=== PATIENT | male | born 1950 | race Caucasian/White ===

== ENCOUNTER 2018-08-21 12:46 | Inpatient (IN) | payer MEDICARE ==
[~2018-08-21] VITALS: Ht 175.3 cm; Wt 49.9 kg
[2018-08-21] MEDS ORDERED: SODIUM CHLORIDE FLUSH 10ML SYR IVF ONE (13:30)
[2018-08-21] MEDS ORDERED: PLEASE ENTER ALLERGIES MC SCH (13:30)
[2018-08-21 13:37] LABS: BASOPHILS # (AUTO) 0.06 x10^3/uL (0-0.1); BASOPHILS % (AUTO) 1 % (0-1); EOSINOPHILS # (AUTO) 0.26 x10^3/uL (0-0.4); EOSINOPHILS % (AUTO) 2 % (1-7); LYMPHOCYTES # (AUTO) 1.73 x10^3/uL (1-3.4); LYMPHOCYTES % (AUTO) 16 % (22-44); MD NO; MEAN CORPUSCULAR HEMOGLOBIN 33.1 pg (27.5-34.5); MEAN CORPUSCULAR VOLUME 97.4 fL (81-97); MONOCYTES # (AUTO) 0.86 x10^3/uL (0.2-0.8); MONOCYTES % (AUTO) 8 % (2-9); NEUTROPHILS # (AUTO) 8.01 x10^3/uL (1.8-6.8); NEUTROPHILS % (AUTO) 73 % (42-75); PLATELET COUNT 341 x10^3/uL (130-400); RED BLOOD COUNT 4.35 x10^6/uL (4.38-5.82); RED CELL DISTRIBUTION WIDTH 15.3 % (9.4-14.8)
[2018-08-21 13:47] LABS: INTERNATIONAL NORMALIZED RATIO 0.97 (0.93-1.1); PROTHROMBIN TIME 10.1 Seconds (9.6-11.5)
[2018-08-21 13:49] LABS: ALANINE AMINOTRANSFERASE 18 U/L (12-78); ALBUMIN 3.3 g/dL (3.4-5.0); ANION GAP 10 mmol/L (5-15); CALCIUM 8.7 mg/dL (8.5-10.1); CHLORIDE 105 mmol/L (98-107); CREATININE 1.05 mg/dL (0.7-1.3)
[2018-08-21 13:54] LABS: ALKALINE PHOSPHATASE 128 U/L (45-117); BILIRUBIN,TOTAL 0.6 mg/dL (0.2-1.0); FREE T4 (FREE THYROXINE) 1.27 ng/dL (0.76-1.46); TOTAL PROTEIN 7.9 g/dL (6.4-8.2); TROPONIN I < 0.015 ng/mL (0.000-0.045)
[2018-08-21] MEDS ORDERED: ONDANSETRON ODT 4 MG PO ONE (15:30)
[2018-08-21 16:28] LABS: SALICYLATE LEVEL 1.7 mg/dL (2.8-20.0)
[2018-08-21 16:33] LABS: ACETAMINOPHEN < 2 mcg/mL (10-30)
[2018-08-21] MEDS ORDERED: ACETAMINOPHEN 325 MG TABLET PO PRN (19:00)
[2018-08-21] MEDS ORDERED: ONDANSETRON ODT 4 MG PO PRN (19:00)
[2018-08-21] MEDS ORDERED: DOCUSATE 100 MG CAPSULE PO PRN (19:00)
[2018-08-21] MEDS ORDERED: hydrALAzine 20 MG/ML, 1ML IVPush PRN (19:00)
[2018-08-21 19:50] VITALS: BP 97/64
[2018-08-21] MEDS: ENOXAPARIN 40 MG/0.4 ML SQ SCH (21:18)
[2018-08-22 02:26] LABS: MICROSCOPIC AUTO
[2018-08-22 02:29] LABS: CULTURE INDICATED? YES
[2018-08-22 03:33] VITALS: BP 90/50
[2018-08-22 07:01] VITALS: BP 95/64
[2018-08-22] MEDS: CEFTRIAXONE PMX 1GM/50ML 50 ML IV SCH (09:24)
[2018-08-22 12:45] VITALS: BP 122/72
[2018-08-22] MEDS ORDERED: POLYETHYLENE GLYCOL 17 GM PACKET PO PRN (13:30)
[2018-08-22 19:02] VITALS: BP 108/61
[2018-08-22] MEDS: ENOXAPARIN 40 MG/0.4 ML SQ SCH (20:18)
[2018-08-22] MEDS: DOCUSATE 100 MG CAPSULE PO SCH (20:18)
[2018-08-22 23:47] LABS: MICROSCOPIC AUTO
[2018-08-23] LABS: CULTURE INDICATED? YES
[2018-08-23 02:34] VITALS: BP 123/76
[2018-08-23 05:33] LABS: ANION GAP 6 mmol/L (5-15); CALCIUM 8.2 mg/dL (8.5-10.1); CHLORIDE 109 mmol/L (98-107)
[2018-08-23 05:40] LABS: BASOPHILS # (AUTO) 0.04 x10^3/uL (0-0.1); BASOPHILS % (AUTO) 1 % (0-1); EOSINOPHILS # (AUTO) 0.23 x10^3/uL (0-0.4); EOSINOPHILS % (AUTO) 3 % (1-7); LYMPHOCYTES # (AUTO) 1.94 x10^3/uL (1-3.4); LYMPHOCYTES % (AUTO) 21 % (22-44); MD NO; MEAN CORPUSCULAR HEMOGLOBIN 32.9 pg (27.5-34.5); MEAN CORPUSCULAR HGB CONC 33.4 g/dL (33.2-36.2); MEAN CORPUSCULAR VOLUME 98.5 fL (81-97); MEAN PLATELET VOLUME 7.4 fL (7.4-10.4); MONOCYTES # (AUTO) 1.18 x10^3/uL (0.2-0.8); MONOCYTES % (AUTO) 13 % (2-9); NEUTROPHILS # (AUTO) 5.76 x10^3/uL (1.8-6.8); NEUTROPHILS % (AUTO) 63 % (42-75); PLATELET COUNT 264 x10^3/uL (130-400); RED BLOOD COUNT 3.82 x10^6/uL (4.38-5.82); RED CELL DISTRIBUTION WIDTH 15.4 % (9.4-14.8)
[2018-08-23 05:59] LABS: FOLATE LEVEL 5.1 ng/mL (3.1-17.5)
[2018-08-23 07:17] VITALS: BP_SYST 103; BP_SYST 113; BP_DIAS 61; BP_DIAS 64
[2018-08-23] MEDS: DOCUSATE 100 MG CAPSULE PO SCH (10:11)
[2018-08-23] MEDS: CEFTRIAXONE PMX 1GM/50ML 50 ML IV SCH (10:11)
[2018-08-23] MEDS ORDERED: DOCUSATE 100 MG CAPSULE PO PRN (10:30)
[2018-08-23] MEDS: FINASTERIDE 5 MG TABLET PO SCH (13:33)
[2018-08-23] MEDS: TAMSULOSIN 0.4 MG CAP.ER.24H PO SCH (13:33)
[2018-08-23 14:42] VITALS: BP 107/65
[2018-08-23 18:49] VITALS: BP 100/62
[2018-08-23] MEDS: ENOXAPARIN 40 MG/0.4 ML SQ SCH (20:33)
[2018-08-24 02:29] VITALS: BP 107/70
[2018-08-24 05:29] LABS: CHLORIDE 107 mmol/L (98-107)
[2018-08-24 05:34] LABS: ANION GAP 10 mmol/L (5-15); CALCIUM 8.1 mg/dL (8.5-10.1); CREATININE 0.82 mg/dL (0.7-1.3)
[2018-08-24 08:25] VITALS: BP 96/62
[2018-08-24 08:44] VITALS: BP 101/61
[2018-08-24] MEDS: CEFTRIAXONE PMX 1GM/50ML 50 ML IV SCH (09:04)
[2018-08-24] MEDS: TAMSULOSIN 0.4 MG CAP.ER.24H PO SCH (09:04)
[2018-08-24] MEDS: FINASTERIDE 5 MG TABLET PO SCH (09:04)
[2018-08-24 13:24] VITALS: BP 111/71
[2018-08-24 19:32] VITALS: BP 98/63
[2018-08-24] MEDS: ENOXAPARIN 40 MG/0.4 ML SQ SCH (21:37)
[2018-08-24] MEDS: CEFDINIR 300 MG CAPSULE PO SCH (21:37)
[2018-08-25 00:55] VITALS: BP 100/64
[2018-08-25 07:06] VITALS: BP 102/68
[2018-08-25 07:39] LABS: BASOPHILS # (AUTO) 0.04 x10^3/uL (0-0.1); BASOPHILS % (AUTO) 1 % (0-1); EOSINOPHILS # (AUTO) 0.46 x10^3/uL (0-0.4); EOSINOPHILS % (AUTO) 6 % (1-7); LYMPHOCYTES # (AUTO) 2.33 x10^3/uL (1-3.4); LYMPHOCYTES % (AUTO) 30 % (22-44); MD NO; MEAN CORPUSCULAR HEMOGLOBIN 32.9 pg (27.5-34.5); MEAN CORPUSCULAR HGB CONC 33.9 g/dL (33.2-36.2); MONOCYTES # (AUTO) 0.77 x10^3/uL (0.2-0.8); MONOCYTES % (AUTO) 10 % (2-9); NEUTROPHILS # (AUTO) 4.16 x10^3/uL (1.8-6.8); NEUTROPHILS % (AUTO) 54 % (42-75); PLATELET COUNT 307 x10^3/uL (130-400); RED CELL DISTRIBUTION WIDTH 15.6 % (9.4-14.8)
[2018-08-25 07:49] LABS: ANION GAP 7 mmol/L (5-15); CALCIUM 8.2 mg/dL (8.5-10.1); CHLORIDE 107 mmol/L (98-107); CREATININE 0.81 mg/dL (0.7-1.3)
[2018-08-25] MEDS: FINASTERIDE 5 MG TABLET PO SCH (08:52)
[2018-08-25] MEDS: TAMSULOSIN 0.4 MG CAP.ER.24H PO SCH (08:52)
[2018-08-25] MEDS: CEFDINIR 300 MG CAPSULE PO SCH ×2 (08:53→22:02)
[2018-08-25] MEDS: SERTRALINE 50MG TABLET PO SCH (09:02)
[2018-08-25 13:15] VITALS: BP 104/67
[2018-08-25 19:11] VITALS: BP 100/64
[2018-08-25] MEDS: ENOXAPARIN 40 MG/0.4 ML SQ SCH (22:02)
[2018-08-26 01:26] VITALS: BP 122/77
[2018-08-26 06:47] VITALS: BP 105/67
[2018-08-26] MEDS: FINASTERIDE 5 MG TABLET PO SCH (09:51)
[2018-08-26] MEDS: TAMSULOSIN 0.4 MG CAP.ER.24H PO SCH (09:51)
[2018-08-26] MEDS: SERTRALINE 50MG TABLET PO SCH (09:52)
[2018-08-26] MEDS: CEFDINIR 300 MG CAPSULE PO SCH ×2 (09:52→20:33)
[2018-08-26 12:19] VITALS: BP 119/73
[2018-08-26 18:40] VITALS: BP 109/69
[2018-08-26] MEDS: ENOXAPARIN 40 MG/0.4 ML SQ SCH (20:33)
[2018-08-27 02:05] VITALS: BP 103/64
[2018-08-27 06:44] VITALS: BP 121/75
[2018-08-27 06:49] VITALS: BP 122/76
[2018-08-27] MEDS: TAMSULOSIN 0.4 MG CAP.ER.24H PO SCH (08:07)
[2018-08-27] MEDS: SERTRALINE 50MG TABLET PO SCH (08:07)
[2018-08-27] MEDS: FINASTERIDE 5 MG TABLET PO SCH (08:07)
[2018-08-27] MEDS: CEFDINIR 300 MG CAPSULE PO SCH ×2 (08:07→20:09)
[2018-08-27 12:49] VITALS: BP 107/69
[2018-08-27 14:55] LABS: AMPHETAMINE SCREEN, URINE Negative (Negative); BARBITURATE SCREEN, URINE Negative (Negative); BENZODIAZEPINE SCREEN, URINE Negative (Negative); CANNABINOID SCREEN, URINE Negative (Negative); COCAINE SCREEN, URINE Negative (Negative); METHADONE SCREEN, URINE Negative (Negative); OPIATE SCREEN, URINE Negative (Negative)
[2018-08-27 18:55] VITALS: BP 101/62
[2018-08-27] MEDS: ENOXAPARIN 40 MG/0.4 ML SQ SCH (20:09)
[2018-08-28 01:21] VITALS: BP 112/67
[2018-08-28 07:17] VITALS: BP 119/72
[2018-08-28] MEDS: FINASTERIDE 5 MG TABLET PO SCH (08:14)
[2018-08-28] MEDS: SERTRALINE 50MG TABLET PO SCH (08:14)
[2018-08-28] MEDS: TAMSULOSIN 0.4 MG CAP.ER.24H PO SCH (08:14)
[2018-08-28] MEDS: CEFDINIR 300 MG CAPSULE PO SCH (08:14)
[2018-08-28 12:31] VITALS: BP 102/67
[2018-08-28] MEDS ORDERED: SERT50TA5 PO (13:07)
[2018-08-28] MEDS ORDERED: TAMS-11 PO (13:07)
[2018-08-28] MEDS ORDERED: ACET325T14 PO (13:07)
[2018-08-28] MEDS ORDERED: FINA5TAB4 PO (13:07)
[2018-08-28] MEDS ORDERED: DOCU-131 PO (13:07)
[2018-08-28] MEDS ORDERED: ONDA4TAB13 PO (13:07)
[2018-08-28 17:50] VITALS: BP 103/66
== END 2018-08-28 18:10 | DRG 70 ==
LOC: ED 17:33 → EDIP 18:05 → 4NOR 19:40
PROVIDERS: ADMIT Internal Medicine; ATTEND Internal Medicine
PROC: 0T9B70Z Drainage of Bladder with Drainage Device, Via Natural or Artificial Opening (ICD-10-PCS; principal; 2018-08-22)
DX: G93.41 Metabolic encephalopathy (principal); E43 Unspecified severe protein-calorie malnutrition; N39.0 Urinary tract infection, site not specified; Z68.1 Body mass index [BMI] 19.9 or less, adult; R62.7 Adult failure to thrive; D53.9 Nutritional anemia, unspecified; F03.90 Unspecified dementia, unspecified severity, without behavioral disturbance, psychotic disturbance, mood disturbance, and anxiety; F12.90 Cannabis use, unspecified, uncomplicated; B96.20 Unspecified Escherichia coli [E. coli] as the cause of diseases classified elsewhere; F32.9 Major depressive disorder, single episode, unspecified; F41.9 Anxiety disorder, unspecified; J44.9 Chronic obstructive pulmonary disease, unspecified; K56.41 Fecal impaction; N40.1 Benign prostatic hyperplasia with lower urinary tract symptoms; N39.498 Other specified urinary incontinence; Z86.73 Personal history of transient ischemic attack (TIA), and cerebral infarction without residual deficits
CPT/HCPCS: 36415; 70450; 74022; 80048; 80053; 80307; 80329; 81001; 82140; 82607; 82746; 83605; 83735; 84100; 84134; 84439; 84443; 84484; 85025; 85610; 85730; 87077; 87086; 87186; 93005; G0378; J0696; J1650; 92522-GN; G0480; G0515-GN